=== PATIENT | female | born 1980 | race Caucasian/White ===

== ENCOUNTER 2021-02-07 08:25 | Outpatient (REF) | payer OTHER, SELFPAY ==
[2021-02-07 11:48] LABS: Appearance Urine CLEAR; Color Urine YELLOW; Glucose Urine UA NEG (NEG); Leukocyte Esterase Urine NEG (NEG); Nitrite Urine NEG (NEG); PH 5.5 (5.0-8.0); Specific Gravity - Urine 1.015 (1.005-1.025); Urine Blood NEG (NEG); Urine Ketones NEG (NEG); Urine Protein NEG (NEG-TRACE)
[2021-02-07 11:50] LABS: Hemoglobin 13.9 g/dl (12.0-16.0); Mean Corpuscular HGB Conc 33.1 g/dl (31.0-35.0); Mean Corpuscular Hemoglobin 30.6 pg (27.0-33.0); Mean Corpuscular Volume 92.5 fL (80.0-98.0); Mean Platelet Volume 10.4 fL (9.4-12.3); Platelet Count 373 X10*3/uL (160-400); Red Blood Count 4.54 X10*6/uL (4.20-5.50); Red Cell Distribution Width 12.4 % (11.0-16.0)
[2021-02-07 12:08] LABS: Bacteria Urine 1+ /LPF; Squamous Epithelial Cell Urine 1+ /LPF
[2021-02-07 12:09] LABS: RBC Urine 0 /HPF (0); WBC Urine 0 /HPF (0-4)
[2021-02-07 12:20] LABS: Alanine Aminotransferase 53 U/L (0-31); Albumin Level 4.6 g/dL (3.5-5.0); Alkaline Phosphatase 49 U/L (39-117); Anion Gap 15 (12-20); Aspartate Amino Transferase 30 U/L (5-31); Bilirubin Total 0.5 mg/dL (0.0-1.0); Blood Urea Nitrogen 17 mg/dL (9-16); Calcium 9.9 mg/dL (8.4-10.2); Carbon Dioxide 24 mmol/L (22-29); Chloride 105 mmol/L (96-108); Cholesterol 187 mg/dL; Estimated Glomerular Filt Rate > 60; Glucose Fasting 92 mg/dL (60-99); HDL Cholesterol 35 mg/dL; Iron 53 mcg/dL (30-160); LDL Cholesterol Calculated 104 mg/dl; Percent Iron Saturation 13 % (15-50); Potassium 5.1 mmol/L (3.3-5.1); Sodium 139 mmol/L (135-145); Total Iron Binding Capacity 410 mcg/dL (228-428); Total Protein 7.4 g/dL (6.5-8.0); Triglycerides 240 mg/dL; Unsaturated Iron Binding 357 ug/dL
[2021-02-07 12:41] LABS: TSH reflex Free T4 0.34 uIU/mL (0.32-4.0)
== END 2021-02-07 08:26 | disposition home or self-care (01) ==
LOC: HO.HMGCLDS 08:25
PROVIDERS: PCP Internal Medicine; Visit Provider Internal Medicine
DX: Z00.00 Encounter for general adult medical examination without abnormal findings (principal); Z13.29 Encounter for screening for other suspected endocrine disorder; Z13.220 Encounter for screening for lipoid disorders; R79.89 Other specified abnormal findings of blood chemistry
CPT/HCPCS: 36415; 80053; 80061; 81001; 83540; 84443; 85027

== ENCOUNTER 2022-10-25 11:00 | Outpatient (AMB) | payer BC, SELFPAY ==
--- NOTE | 2022-10-25 11:24 | MHC.PC.OV ---
Vital Signs 10/25/22 11:27 Height 5 ft 9 in Weight 228 lb BMI 33.7 BP 130/80 Blood Pressure Location Lt brachial Position Sitting Pulse 46 L Pulse Source Pulse Oximeter Pulse Oximetry (%) 98 Oxygen Delivery Method Room Air Intake Visit Reasons: Dermatology Referral Intake Note: Pt is here today for a sick visit. Pt c/o moll on her R side of the chest that she would like to get referral to Dermatology. Allergies nickel Allergy (Mild, Uncoded 10/25/22 11:31) skin irritation Medication List - Last Reconciled 10/25/22 by Martha Odom MD No Known Home Meds Tobacco use date assessed: 10/25/22 Dental Screening Dental Screen Date: 10/25/22 Did you have a dental visit in the last 12 months?: Yes Did you have a dental problem in the last 6 months where you did not have access to dental care?: No Was dental information given to patient?: Patient has dentist HPI Dermatology Referral HPI Details Patient presents for physical. She would like to see a tool and die assembler for some changing nevi. 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 How often do you have a drink containing alcohol?: Never 3. How often do you have six or more drinks on one occasion?: Never Total Score: 0 KG-7 AMB Questionnaire KG-7 Date KG - 7 assessed: 02/07/21 Source: Developed by Drs. Edmundo Alvarenga, Jelena Albrecht, Juan Leon and colleagues, with an educational zeb from [employer]. Review of Systems Const All systems reviewed & are unremarkable except as noted in HPI and below Reports no additional complaints Eyes Reports no additional complaints ENT Reports no additional complaints Card Reports no additional complaints Resp Reports no additional complaints GI Reports no additional complaints Reports no additional complaints Physical exam (Primary Care) Vital Signs: Last Vital Signs Pulse 46 L 10/25/22 11:27 BP 130/80 10/25/22 11:27 Pulse Ox 98 10/25/22 11:27 Oxygen Delivery Method Room Air 10/25/22 11:27 BMI result Body Mass Index 33.7 Tobacco/Smoking Status: Tobacco use Status Tobacco use date assessed 10/25/22 10/25/22 11:33 Patient Tobacco Use Status Never used Tobacco 10/25/22 11:33 Tobacco use type 10/25/22 11:33 e-Cigarette/Vaping Use Never Used 10/25/22 11:24 Thrive Assessment: Date of Thrive Assessment Date Thrive assessed 02/07/21 10/25/22 11:24 Const General: no acute distress HENMT Head: Yes normal to inspection Ears: hearing grossly normal bilaterally and TM's normal bilaterally Face and sinus: Yes normal facial exam Throat: Yes posterior oropharynx normal Eyes General: appearance normal, both eyes and all related structures Neck Neck: Yes no lymphadenopathy and Yes supple Resp Effort & Inspection: normal respiratory effort Auscultation: clear to auscultation bilaterally Cardio Rhythm: regular rhythm Heart sounds: S1 normal heart sound present and S2 normal heart sound present GI Inspection: Yes normal to inspection Palpation (GI): Soft to palpation Percussion: Yes normal to percussion Auscultation: normal bowel sounds Assessment and Plan Assessment & Plan (1) Dysplastic nevi: Comment: On upper chest and right forearm, refer to [place] Code(s): D23.9 - Other benign neoplasm of skin, unspecified (2) Annual physical exam: Code(s): Z00.00 - Encounter for general adult medical examination without abnormal findings Plan: Well-balanced at ago physical activity discussed with the patient she will return for fasting blood work (3) Normal pelvic exam: Comment: 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 Panel Fast Today Z00.00 - Encounter for general adult medical examination without abnormal findings, Z01.419 - Encounter for gynecological examination (general) (routine) without abnormal findings IRON PROFILE Today Z00.00 - Encounter for general adult medical examination without abnormal findings, Z01.419 - Encounter for gynecological examination (general) (routine) without abnormal findings Lipid Panel Today Z00.00 - Encounter for general adult medical examination without abnormal findings, Z01.419 - Encounter for gynecological examination (general) (routine) without abnormal findings TSH reflex Free T4 Today Z00.00 - Encounter for general adult medical examination without abnormal findings, Z01.419 - Encounter for gynecological examination (general) (routine) without abnormal findings Complete Blood Count Auto Diff Today Z00.00 - Encounter for general adult medical examination without abnormal findings, Z01.419 - Encounter for gynecological examination (general) (routine) without abnormal findings Referrals Dermatology Referral D23.9 - Other benign neoplasm of skin, unspecified Coding Level of Care Code Est Pt Prev Care 40-64y(31943) Diagnoses Dysplastic nevi D23.9 Annual physical exam Z00.00 Normal pelvic exam Z01.419
[2022-10-25 11:27] VITALS: BP 130/80; PULSE 46; O2SAT 98; BMI 33.7
== END 2022-10-25 12:06 | disposition home or self-care (01) ==
PROVIDERS: PCP Internal Medicine; Visit Provider Internal Medicine
DX: Z00.00 Encounter for general adult medical examination without abnormal findings (principal); D23.9 Other benign neoplasm of skin, unspecified
CPT/HCPCS: 99396

== ENCOUNTER 2022-10-31 07:45 | Outpatient (REF) | payer BC, SELFPAY ==
[2022-10-31 11:31] LABS: MANUAL DIFF FLAG NO
[2022-10-31 12:00] LABS: Basophils Absolute Auto 0.1 X10*3/uL (0.0-0.2); Basophils Percent Auto 0.7 % (0-2); Eosinophils Absolute Auto 0.2 X10*3/uL (0.0-0.4); Eosinophils Percent Auto 3.3 % (0-4); Hematocrit 41.8 % (37.0-47.0); Hemoglobin 13.9 g/dl (12.0-16.0); Imm Gran Abs Auto 0.05 X10*3/uL (0.00-0.03); Imm Gran Pct Auto 0.7 % (0.0-0.4); Lymphocytes Absolute Auto 1.8 X10*3/uL (1.2-4.9); Lymphocytes Percent Auto 25.2 % (20-40); Mean Corpuscular HGB Conc 33.3 g/dl (31.0-35.0); Mean Corpuscular Hemoglobin 30.5 pg (27.0-33.0); Mean Corpuscular Volume 91.7 fL (80.0-98.0); Mean Platelet Volume 10.5 fL (9.4-12.3); Monocytes Absolute Auto 0.7 X10*3/uL (0.1-1.2); Monocytes Percent Auto 9.3 % (2-11); Neutrophils Absolute Auto 4.4 x10*3/uL (2.0-8.3); Neutrophils Percent Auto 60.8 % (45-73); Platelet Count 389 X10*3/uL (160-400); Red Blood Count 4.56 X10*6/uL (4.20-5.50); Red Cell Distribution Width 12.2 % (11.0-16.0); White Blood Count 7.2 X10*3/uL (4.8-10.8)
[2022-10-31 12:21] LABS: Alanine Aminotransferase 41 U/L (0-31); Albumin Level 4.3 g/dL (3.5-5.0); Alkaline Phosphatase 40 U/L (39-117); Anion Gap 11 (12-20); Aspartate Amino Transferase 28 U/L (5-31); Bilirubin Total 0.4 mg/dL (0.0-1.0); Blood Urea Nitrogen 10 mg/dL (9-16); Calcium 9.6 mg/dL (8.4-10.2); Carbon Dioxide 26 mmol/L (22-29); Chloride 107 mmol/L (96-108); Cholesterol 148 mg/dL (<200); Estimated Glomerular Filt Rate > 60; Glucose Fasting 92 mg/dL (60-99); HDL Cholesterol 31 mg/dL (>40); Iron 62 mcg/dL (30-160); LDL Cholesterol Calculated 56 mg/dL (<100); Percent Iron Saturation 19 % (15-50); Potassium 4.8 mmol/L (3.3-5.1); Sodium 139 mmol/L (135-145); Total Iron Binding Capacity 328 mcg/dL (228-428); Total Protein 6.8 g/dL (6.5-8.0); Triglycerides 308 mg/dL (<150); Unsaturated Iron Binding 266 ug/dL
== END 2022-10-31 07:46 | disposition home or self-care (01) ==
LOC: HO.HMGCLDS 07:45
PROVIDERS: PCP Internal Medicine; Visit Provider Internal Medicine
DX: Z00.00 Encounter for general adult medical examination without abnormal findings (principal)
CPT/HCPCS: 36415; 80053; 80061; 83540; 84443; 85025

== ENCOUNTER 2023-09-12 00:47 | Observation (INO) | payer BC, SELFPAY ==
--- NOTE | ~2023-09-12 | MR_ITS ---
EXAMINATION: MR BRAIN WITHOUT CONTRAST CLINICAL INFORMATION: Left upper extremity numbness. COMPARISON: CT head 12/01/2018. TECHNIQUE: MRI of the brain was obtained using routine sequences without contrast. FINDINGS: There is no intracranial mass effect or midline shift. No abnormal extra-axial collection. Lateral and third ventricles are normal. No hydrocephalus. Midline structures including the cervicomedullary junction are normal. No acute bone marrow signal changes. There is no acute territorial infarct. No pathological magnetic susceptibility artifact. Intracranial vascular flow voids are grossly maintained. No mastoid or middle ear effusion. Trivial mucosal thickening within ethmoid air cells and frontal sinuses. Globes and orbits are symmetric. MR/MR head/brain wo con IMPRESSION: Normal brain MRI.
--- NOTE | ~2023-09-12 | CT_ITS ---
EXAMINATION: CT HEAD WITHOUT CONTRAST (STROKE PROTOCOL) CLINICAL INFORMATION: Stroke protocol. Left face and left arm numbness. COMPARISON: 12/01/2018. TECHNIQUE: Contiguous axial imaging was performed from the skull base to vertex without intravenous administration of contrast. This CT examination was performed using dose optimization techniques as appropriate, variously including the following: *Automated exposure control *Adjustment of mA and/or kV according to patient size (this includes techniques or standardized protocols for targeted exams where dose is matched to indication/reason for exam; i.e. extremities or head) *Use of iterative reconstruction technique DLP: 632 mGy-cm FINDINGS: The lateral, third and fourth ventricles are normally outlined. The cortical sulci and basal cisterns are normally outlined as well. There is no acute territorial defect, hemorrhage or midline shift. The extra-axial spaces are unremarkable. Calvarium/scalp: Intact. Maxillofacial sinuses and mastoids: Clear as visualized. CT/CT head for stroke IMPRESSION: No acute intracranial pathology. This critical result was discussed with Dr. Vj Feliciano at 1:25 AM hours on 09/12/2023 . It was ascertained that the content and urgency of the report was understood at the time of direct communication.
--- NOTE | ~2023-09-12 | US_ITS ---
EXAMINATION: US EXTRACRANIAL CAROTID DUPLEX, BILATERAL CLINICAL INFORMATION: Left arm numbness COMPARISON: None available. TECHNIQUE: Real-time ultrasound and Doppler techniques (integrating B-mode 2-D vascular images, Doppler spectral analysis and color-flow Doppler imaging) were utilized to interrogate the extracranial carotid arteries, the vertebral arteries and proximal subclavian arteries bilaterally. The degree of stenosis is determined by criteria similar to NASCET. FINDINGS: Right Side: 1. There is no significant atherosclerotic plaque seen in the bifurcation/proximal ICA region. 2. The common carotid artery PSV proximally is 127 cm/s and distally 128 cm/s. 3. The proximal internal carotid artery velocities are 142 cm/s systolic and 39.2 cm/s diastolic. 4. The proximal external carotid artery PSV is 156 cm/s. 5. The vertebral artery shows antegrade flow. 6. The subclavian artery waveforms are normal. Left Side: 1. There is no significant atherosclerotic plaque seen in the bifurcation/proximal ICA region. 2. The common carotid artery PSV proximally is 114 cm/s and distally 116 cm/s. 3. The proximal internal carotid artery velocities are 122 cm/s systolic and 43.1 cm/s diastolic. 4. The proximal external carotid artery PSV is 153 cm/s. 5. The vertebral artery shows antegrade flow. 6. The subclavian artery waveforms are normal. US/US carotid duplex BI IMPRESSION: 1. RIGHT: Normal right internal carotid artery without atherosclerotic plaque or hemodynamically significant stenosis. 2. LEFT: Normal left internal carotid artery without atherosclerotic plaque or hemodynamically significant stenosis.
[2023-09-12 00:58] VITALS: BP 174/101; PULSE 70; RESP 18; TEMP 36.4; O2SAT 96; BMI 33.2
--- NOTE | 2023-09-12 01:08 | PC.NURSE ---
pt to CT
--- NOTE | 2023-09-12 01:12 | ED_ITS ---
HPI - Neuro Symptoms/Deficit General Chief Complaint: Stroke Stated Complaint: left arm numbness Time Seen by Provider: 09/12/23 01:12 Source: patient Mode of arrival: ambulatory Limitations: no limitations History of Present Illness ED Provider: Dr. Sidney Feliciano HPI Narrative: 43-year-old female with no significant past medical history who presents emergency department for evaluation of numbness to the left side of her face, left arm and left leg which started approximately 30-45 minutes prior to coming to emergency department (estimated last well-known time 23:30 hours). The patient states that the symptoms came on suddenly while she was watching television. She states that she was sitting in a reclining position on her bed watching television. She states that her right arm felt numb. This numbness persisted. When she got to the emergency department she was brought right back in for evaluation of possible stroke. The patient denied headache, nausea, vomiting, neck pain, palpitations. Patient denied being ill in any way prior to the onset of her symptoms Related Data Home Medications ?Medication ?Instructions ?Recorded ?Confirmed No Known Home Meds 02/07/21 10/25/22 Allergies Allergy/AdvReac Type Severity Reaction Status Date / Time nickel Allergy Mild skin Uncoded 09/12/23 01:06 irritation Review of Systems 2 Review of Systems: Yes all other systems are reviewed and are negative [facility] Past Medical History [facility] Narrative: Social history: Patient denies tobacco, alcohol and drug use. 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 Housing: House Patient Tobacco Use Status: Never used Tobacco Smoked in Last 30 Days: No e-Cigarette/Vaping Use: Never Used Advance Directives: No Advance Directives Information Provided: Yes Do you have a plan to hurt others: No Plan service: No Current occupational status: employed 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 Exam: General: Awake, alert in no distress Head: Normocephalic, atraumatic EENT: PERRL, Lids normal, sclera normal, conjunctiva normal, nose normal , ears normal, throat without erythema or exudates Neck: Supple, no adenopathy Lung: breath sounds symmetric, no wheezing, rales or rhonchi Chest: symmetric movement, nontender Heart: regular rate and rhythm, normal S1, S2 no murmurs or rubs Abdomen: soft, non-tender, nondistended, normal bowel sounds Back: no vertebral tenderness, no CVAT Extremities: no deformities, moves all extremities symmetrically Neuro: Awake, alert, oriented, normal speech, cranial nerves intact, moves all extremities symmetrically, patient has slight diminished light touch to her left side of her face, left arm and left leg compared to the right Psych: Pleasant, cooperative Medical Decision Making Medical Decision Making MDM Narrative: 43-year-old female with no significant past medical history who presents emergency department for evaluation of numbness to the left side of her face, left arm and left leg which started approximately 30-45 minutes prior to coming to emergency department (estimated last well-known time 23:30 hours). Symptoms came on suddenly, patient was reclined in bed watching television. She describes the symptoms as a numbness of her left arm. The patient denied headache, nausea, vomiting, neck pain, palpitations. Vital signs revealed an elevated blood pressure otherwise unremarkable. Physical examination revealed no significant weakness of her left side compared to the right but she did have diminished light touch to her left face, left arm and left leg. Differential diagnosis: ?Includes but is not limited to stroke, TIA, complex migraine, electrolyte abnormalities, anemia Following evaluation was ordered: CBC, BMP, LFTs, magnesium, CK, TSH, PT/INR, PTT, troponin, urinalysis, CT head for stroke protocol Course: 02:33 My interpretation patient's laboratory evaluation is as follows: CBC is normal, CMP was normal. Chloride elevated 109, CO2 low 21. AST, ALT elevated 35 and 63, CK elevated to 65, TSH was normal. CT scan of the patient's head revealed no acute findings. Twelve EKG revealed a normal sinus rhythm with a rate of 64. On re-evaluation, the patient continues to have left-sided arm numbness. Given her low NIH stroke scale of 1, the patient is not a thrombolytics candidate and I do not think that she needs CT angiogram of her head and neck at this time. Given the fact that her numbness of her left upper extremity is persisting, the patient will be admitted for evaluation of possible stroke. Patient was given aspirin 162 mg orally. I did discuss admission over tiger text with the covering hospitalist, Dr. Chavez Lozoya the patient will be admitted for further management and diagnostic workup. Admission/Observation Consideration of admission/observation: Escalation of care including admission/observation considered Consult Healthcare Provider Management of the patient was discussed with: Hospitalist and Pulper (Radiologist) Lab Data MDM Lab Attestation statement: I reviewed the patient's lab results. 09/12/23 01:10 09/12/23 01:10 Labs: Lab Results 09/12/23 09/12/23 Range/Units 01:10 Unknown WBC 7.8 (4.8-10.8) X10*3/uL RBC 4.28 (4.20-5.50) X10*6/uL Hgb 13.3 (12.0-16.0) g/dl Hct 38.0 (37.0-47.0) % MCV 88.8 (80.0-98.0) fL MCH 31.1 (27.0-33.0) pg MCHC 35.0 (31.0-35.0) g/dl RDW 12.6 (11.0-16.0) % Plt Count 365 (160-400) X10*3/uL MPV 9.9 (9.4-12.3) fL Immature Gran % (Auto) 0.4 (0.0-0.4) % Neut % (Auto) 49.1 (45-73) % Lymph % (Auto) 35.7 (20-40) % [place] % (Auto) 10.1 (2-11) % Eos % (Auto) 4.1 H (0-4) % Baso % (Auto) 0.6 (0-2) % Lymph # (Auto) 2.8 (1.2-4.9) X10*3/uL [place] # (Auto) 0.8 (0.1-1.2) X10*3/uL Eos # (Auto) 0.3 (0.0-0.4) X10*3/uL Baso # (Auto) 0.1 (0.0-0.2) X10*3/uL Abs Immat Gran (auto) 0.03 (0.00-0.03) X10*3/uL Absolute Neuts (auto) 3.8 (2.0-8.3) x10*3/uL Absolute Nucleated RBC 0.000 (0.0-0.012) X10*3/uL Nucleated RBC % (auto) 0.0 (0.0-0.2) /100WBC PT 11.6 (11.1-13.3) SEC INR 1.0 (0.9-1.1) APTT 30.3 (26.0-36.8) SEC Sodium 140 (135-145) mmol/L Potassium 3.8 (3.3-5.1) mmol/L Chloride 109 H (96-108) mmol/L Carbon Dioxide 21 L (22-29) mmol/L Anion Gap 14 (12-20) BUN 13 (9-16) mg/dL Creatinine 0.91 (0.5-1.4) mg/dL Estim Creat Clear Calc 100.3 Estimated GFR > 60 Random Glucose 102 (60-115) mg/dL Calcium 9.5 (8.4-10.2) mg/dL Magnesium 2.3 (1.6-2.6) mg/dL Total Bilirubin 0.5 (0.0-1.0) mg/dL Direct Bilirubin 0.2 (0.0-0.5) mg/dL AST 35 H (5-31) U/L ALT 63 H (0-31) U/L Alkaline Phosphatase 42 (39-117) U/L Total Creatine Kinase 265 H (26-140) U/L Troponin I High Sens 4.6 (<3.5-17.0) ng/L Total Protein 7.0 (6.5-8.0) g/dL Albumin 4.5 (3.5-5.0) g/dL TSH 0.64 (0.32-4.0) uIU/mL Urine Color Yellow Urine Appearance Clear Urine pH 6.5 (5.0-9.0) Ur Specific [place] 1.010 (1.005-1.025) Urine Protein Negative (Neg-Trace) mg/dL Urine Glucose (UA) Negative (Negative) mg/dL Urine Ketones Negative (Negative) mg/dL Urine Blood Negative (Negative) Urine Nitrite Negative (Negative) Ur Leukocyte Esterase Negative (Negative) Independent Interpretation I performed an independent interpretation of an: EKG Interpretation: My interpretation patient's 12 EKG done at 02:21 hours is as follows: Normal sinus rhythm rate of 64, normal OH interval, prolonged QRS duration of 102 milliseconds, QTC interval, no ST segment elevation, no ST segment depression, inverted T-waves in lead 3 and V1, no PACs, no PVCs, R/R prime V1 consistent with incomplete right bundle-branch block. Radiology Impression Discussion of test interpretation with radiology: I discussed test interpretation with the radiologist and I have reviewed the radiologist's reading. Radiologist Impression: CT head for stroke IMPRESSION: No acute intracranial pathology. This critical result was discussed with Dr. Vj Feliciano at 1:25 AM hours on 09/12/2023 . It was ascertained that the content and urgency of the report was understood at the time of direct communication. Dictated By: Edmundo Anthony NIH Stroke Scale Internal: Initial- Upon Arrival Level of Consciousness: Alert Level of Consciousness Questions: Answers both questions correctly Level of Consciousness Commands: Performs both tasks correctly Best Gaze: Normal Visual: No visual loss Facial Palsy: Normal Motor Arm (Right): No drift Motor Arm (Left): No drift Motor Leg (Right): No drift Motor Leg (Left): No drift Limb Ataxia: Absent Sensory: Mild to moderate sensory loss Best Language: No aphasia Dysarthia: Normal Extinction and Inattention: No abnormality Score: 1 Critical Care Time Critical Care Time Critical Care Time: Yes Total Critical Care Time: 35 Attestation: Critical Care: The patient was critically ill with a high probability of imminent or life threatening deterioration. I spent greater than 30 minutes of discontinuous time evaluating the patient,delivering critical care at the bedside, discussing and evaluating pertinent data with consultants. Critical care time does not include time spent performing separately billable procedures or teaching. Total time spent performing critical care was 35 minutes. Discharge Plan Discharge Clinical Impression: Left arm numbness Patient Disposition: Admitted As Inpatient Print Language: Frisian
--- NOTE | 2023-09-12 01:12 | ECG_ITS ---
Test Reason : STROKE PROTOCOL Blood Pressure : / mmHG Vent. Rate : 064 BPM Atrial Rate : 064 BPM P-R Int : 138 ms QRS Dur : 102 ms QT Int : 402 ms P-R-T Axes : 023 -03 008 degrees QTc Int : 414 ms Normal sinus rhythm Incomplete right bundle branch block Borderline ECG When compared with ECG of 01-DEC-2018 16:55, No significant change was found Referred By: Sidney Feliciano Electronically Signed By:Bebeto Mukherjee
[2023-09-12 01:21] LABS: MANUAL DIFF FLAG NO
[2023-09-12 01:23] LABS: Basophils Absolute Auto 0.1 X10*3/uL (0.0-0.2); Basophils Percent Auto 0.6 % (0-2); Eosinophils Absolute Auto 0.3 X10*3/uL (0.0-0.4); Eosinophils Percent Auto 4.1 % (0-4); Hemoglobin 13.3 g/dl (12.0-16.0); Imm Gran Abs Auto 0.03 X10*3/uL (0.00-0.03); Imm Gran Pct Auto 0.4 % (0.0-0.4); Lymphocytes Absolute Auto 2.8 X10*3/uL (1.2-4.9); Lymphocytes Percent Auto 35.7 % (20-40); Mean Corpuscular Hemoglobin 31.1 pg (27.0-33.0); Mean Corpuscular Volume 88.8 fL (80.0-98.0); Mean Platelet Volume 9.9 fL (9.4-12.3); Monocytes Absolute Auto 0.8 X10*3/uL (0.1-1.2); Monocytes Percent Auto 10.1 % (2-11); Neutrophils Absolute Auto 3.8 x10*3/uL (2.0-8.3); Neutrophils Percent Auto 49.1 % (45-73); Platelet Count 365 X10*3/uL (160-400); Red Blood Count 4.28 X10*6/uL (4.20-5.50); Red Cell Distribution Width 12.6 % (11.0-16.0); White Blood Count 7.8 X10*3/uL (4.8-10.8)
[2023-09-12 01:24] VITALS: BP 147/82; PULSE 62; RESP 18; TEMP 36.8; O2SAT 97
[2023-09-12 01:30] LABS: Prothrombin Time 11.6 SEC (11.1-13.3)
[2023-09-12 01:32] LABS: Partial Thromboplastin Time 30.3 SEC (26.0-36.8)
[2023-09-12 01:36] LABS: Stroke Lab Use COMPLETE
[2023-09-12 01:42] LABS: Troponin-I High Sensitivity 4.6 ng/L (<3.5-17.0)
[2023-09-12 01:45] LABS: Alanine Aminotransferase 63 U/L (0-31); Albumin Level 4.5 g/dL (3.5-5.0); Alkaline Phosphatase 42 U/L (39-117); Anion Gap 14 (12-20); Aspartate Amino Transferase 35 U/L (5-31); Bilirubin Direct 0.2 mg/dL (0.0-0.5); Bilirubin Total 0.5 mg/dL (0.0-1.0); Blood Urea Nitrogen 13 mg/dL (9-16); Calcium 9.5 mg/dL (8.4-10.2); Carbon Dioxide 21 mmol/L (22-29); Chloride 109 mmol/L (96-108); Creatinine Clr Calc Pharmacy 100.3; Estimated Glomerular Filt Rate > 60; Glucose Random 102 mg/dL (60-115); Magnesium 2.3 mg/dL (1.6-2.6); Potassium 3.8 mmol/L (3.3-5.1); Sodium 140 mmol/L (135-145)
[2023-09-12 01:52] VITALS: BMI 34.9
[2023-09-12 01:59] LABS: Appearance Urine Clear; Color Urine Yellow; Glucose Urine UA Negative (Negative); Leukocyte Esterase Urine Negative (Negative); Nitrite Urine Negative (Negative); PH 6.5 (5.0-9.0); Urine Blood Negative (Negative); Urine Ketones Negative (Negative); Urine Protein Negative (Neg-Trace)
[2023-09-12 01:59] LABS: Thyroid Stimulating Hormone 0.64 uIU/mL (0.32-4.0)
[2023-09-12] MEDS: Aspirin 81 MG TAB.CHEW 162 MG PO (02:43)
--- NOTE | 2023-09-12 03:42 | P.HPHOSP_ITS ---
History of Present Illness Date of Service: 09/12/23 Attending physician on admission: Ricardo Lozoya Chief Complaint: Left arm numbness Inessa Maldonado is a very pleasant 43 years old woman with no significant past medical history presents to the emergency department complaining of left arm numbness that started 30-45 minutes before arriving to the emergency department. She did not report any numbness or weakness to her face or left leg. She did not report any headache, acute visual disturbances, nausea, vomiting, dizziness, palpitations, chest pain or shortness on breath. She did not report any acute gastrointestinal genitourinary symptoms. She denied tobacco smoking, alcohol abuse or illicit drug use. She has no history of diabetes mellitus, hypertension, hyperlipidemia, heart disease or strokes. She also denied any history of stroke or blood dyscrasias in her family. Patient stated that she recently started to eat a healthy diet and exercise. In the ED, she was found to have an initial blood pressure 174/101. Last BP is 147/82. Blood workup including CBC, CMP and troponin are unremarkable except for slight elevation of transaminases and total CK. Head CT scan showed no acute intracranial abnormalities. ECG showed normal sinus rhythm and incomplete right bundle branch block. ED tx: Aspirin 162 mg p.o. Review of Systems 2 Review of Systems: All 12 systems were reviewed and normal except as noted in HPI. 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 Current occupational exposures/hazards: No Cognitive needs: No Hearing needs: No Vision needs: No Meds Allergies Allergy/AdvReac Type Severity Reaction Status Date / Time nickel Allergy Mild skin Uncoded 09/12/23 01:06 irritation Active Medications: Current Medications Acetaminophen (Acetaminophen 325 Mg Tablet) 975 mg PO Q6H PRN PRN Reason: Pain, Mild (Pain Scale 1-3), fever or headache Aspirin (Aspirin Enteric Coated 81 Mg Tablet.Dr) 81 mg PO DAILY JAIMIE Calcium Carbonate (Calcium Carbonate 750 Mg Tab.Chew) 750 mg PO Q4H PRN PRN Reason: Heartburn Magnesium Hydroxide (Milk Of Magnesia 30 Ml Oral.Susp) 30 ml PO DAILY PRN PRN Reason: Constipation Melatonin (Melatonin 3 Mg Tablet) 6 mg PO BEDTIME PRN PRN Reason: Insomnia Sodium Chloride (0.9 % Sodium Chloride Flush 3 Ml Syringe) 3 ml IVFLUSH QSHIFT JAIMIE Home Medications ?Medication ?Instructions ?Recorded ?Confirmed ?Last Taken ?Type No Known Home Meds 02/07/21 09/12/23 Unknown History Physical Exam 2 Vital Signs and Narrative: Vital Signs: Last Vital Signs Temp 98.3 F 09/12/23 01:24 Pulse 62 09/12/23 01:24 Resp 18 09/12/23 01:24 BP 147/82 H 09/12/23 01:24 Pulse Ox 97 09/12/23 01:24 O2 Del Method Room Air 09/12/23 01:24 BMI result Body Mass Index 34.9 Constitutional - Awake and Alert, No apparent distress. Pleasant. Cooperative. HEENT - PERRL, EOMI Heart - S1S2, RRR. No murmurs. Lungs - Normal lung expansion, Normal respiratory effort, No respiratory distress, CTA bilaterally Abdomen - NT / ND; +BS; No rebound or guarding Extremities - no calf tenderness bilaterally, no swelling Musculoskeletal - Normal inspection, normal ROM Skin - Warm/Dry Neurological - Alert & oriented x3, CN III-XII in tact, 5/5 strength BUE and BLE. Normal speech. Psychological - Appropriate affect Results Labs 09/12/23 04:25 09/12/23 04:26 Labs: Laboratory Results - last 24 hr 09/12/23 09/12/23 01:10 Unknown MCV 88.8 MCH 31.1 MCHC 35.0 RDW 12.6 Plt Count 365 MPV 9.9 Immature Gran % (Auto) 0.4 Neut % (Auto) 49.1 Lymph % (Auto) 35.7 [place] % (Auto) 10.1 Eos % (Auto) 4.1 H Baso % (Auto) 0.6 Lymph # (Auto) 2.8 [place] # (Auto) 0.8 Eos # (Auto) 0.3 Baso # (Auto) 0.1 Abs Immat Gran (auto) 0.03 Absolute Neuts (auto) 3.8 Absolute Nucleated RBC 0.000 Nucleated RBC % (auto) 0.0 PT 11.6 INR 1.0 APTT 30.3 Anion Gap 14 Estim Creat Clear Calc 100.3 Estimated GFR > 60 Random Glucose 102 Calcium 9.5 Magnesium 2.3 Total Bilirubin 0.5 Direct Bilirubin 0.2 AST 35 H ALT 63 H Alkaline Phosphatase 42 Total Creatine Kinase 265 H Troponin I High Sens 4.6 Total Protein 7.0 Albumin 4.5 TSH 0.64 Urine Color Yellow Urine Appearance Clear Urine pH 6.5 Ur Specific [place] 1.010 Urine Protein Negative Urine Glucose (UA) Negative Urine Ketones Negative Urine Blood Negative Urine Nitrite Negative Ur Leukocyte Esterase Negative Imaging Radiologist's Impressions: Impressions Head CT 09/12/23 01:18 IMPRESSION: No acute intracranial pathology. This critical result was discussed with Dr. Vj Feliciano at 1:25 AM hours on 09/12/2023 . It was ascertained that the content and urgency of the report was understood at the time of direct communication. Assessment and Plan (1) Left arm numbness: Status: Acute (2) Elevated liver transaminase level: Status: Acute (3) Elevated CPK: Status: Acute Plan Inessa Maldonado is a 43 years old woman presents with: * Left upper extremity numbness. TIA versus stroke. Observation. Telemetry. Neuro checks every 4 hours. Continue aspirin 81 mg p.o. daily. Check lipid panel, troponin and A1c. Check TTE, brain MRI and bilateral carotid US. Neurology consult. * Mildly elevated transaminases and total CK (not rhabdomyolysis levels). Likely due to exercising. Recheck in the morning. Quality Stroke Does the patient have a stroke diagnosis?: No VTE Prior VTE?: No VTE Risk Level:: Medical - low VTE Device Contraindication: Treatment Not Indicated VTE Drug Contraindication: Treatment Not Indicated
[2023-09-12 04:43] LABS: MANUAL DIFF FLAG NO
[2023-09-12 04:44] LABS: Basophils Absolute Auto 0.1 X10*3/uL (0.0-0.2); Basophils Percent Auto 0.6 % (0-2); Eosinophils Absolute Auto 0.2 X10*3/uL (0.0-0.4); Eosinophils Percent Auto 2.8 % (0-4); Hematocrit 35.6 % (37.0-47.0); Hemoglobin 12.6 g/dl (12.0-16.0); Imm Gran Abs Auto 0.04 X10*3/uL (0.00-0.03); Imm Gran Pct Auto 0.5 % (0.0-0.4); Lymphocytes Absolute Auto 2.1 X10*3/uL (1.2-4.9); Lymphocytes Percent Auto 27.2 % (20-40); Mean Corpuscular HGB Conc 35.4 g/dl (31.0-35.0); Mean Corpuscular Hemoglobin 31.8 pg (27.0-33.0); Mean Corpuscular Volume 89.9 fL (80.0-98.0); Mean Platelet Volume 10.1 fL (9.4-12.3); Monocytes Absolute Auto 0.7 X10*3/uL (0.1-1.2); Neutrophils Absolute Auto 4.6 x10*3/uL (2.0-8.3); Neutrophils Percent Auto 59.9 % (45-73); Platelet Count 313 X10*3/uL (160-400); Red Blood Count 3.96 X10*6/uL (4.20-5.50); Red Cell Distribution Width 12.4 % (11.0-16.0); White Blood Count 7.8 X10*3/uL (4.8-10.8)
[2023-09-12 05:07] LABS: Alanine Aminotransferase 60 U/L (0-31); Albumin Level 4.2 g/dL (3.5-5.0); Alkaline Phosphatase 38 U/L (39-117); Anion Gap 12 (12-20); Aspartate Amino Transferase 33 U/L (5-31); Bilirubin Total 0.4 mg/dL (0.0-1.0); Blood Urea Nitrogen 11 mg/dL (9-16); Calcium 9.3 mg/dL (8.4-10.2); Carbon Dioxide 23 mmol/L (22-29); Chloride 111 mmol/L (96-108); Creatinine Clr Calc Pharmacy 102.9; Estimated Glomerular Filt Rate > 60; Glucose Random 103 mg/dL (60-115); Potassium 4.7 mmol/L (3.3-5.1); Sodium 141 mmol/L (135-145); Total Protein 6.7 g/dL (6.5-8.0)
--- NOTE | 2023-09-12 05:28 | PC.NURSE ---
Completed home medication worklist
[2023-09-12 05:48] VITALS: BP 124/79; PULSE 100; RESP 17; TEMP 36.8; O2SAT 98
--- NOTE | 2023-09-12 07:00 | CA_ITS ---
Transthoracic Echocardiogram Patient (Last, First, Middle): Inessa Maldonado, Gender: Female Date of : 1980 Age: 43 Procedure Date: 09/12/2023 Procedure Type: Transthoracic Echocardiogram [place] [facility] [place] Height: 175.26 cm Weight: 107.05 kg BSA: 2.22 m2 Heart Rate: bpm BP: 124 / 79 mmHg Veneer Lathe Operator: Referring MD: Ricardo Lozoya MD Symptoms: STroke symptoms Study Quality: Adequate w Contrast ECG Rhythm: Sinus Conclusions: - Normal left ventricular size and systolic function. There is mildly increased left ventricular wall thickness. The visually estimated ejection fraction is between 55-60%. Diastolic function is normal for age. - Normal right ventricular cavity size and systolic function. Findings Left Ventricle Normal left ventricular size and systolic function. There is mildly increased left ventricular wall thickness. The visually estimated ejection fraction is between 55-60%. Diastolic function is normal for age. Right Ventricle Normal right ventricular cavity size and systolic function. Atria The left atrium is normal in size. Aortic Valve Normal aortic valve structure and function. There is no aortic valve stenosis. There is no aortic valve regurgitation. Mitral Valve Normal mitral valve structure and function. There is trace mitral valve regurgitation. There is no mitral valve stenosis. Pulmonic Valve The pulmonic valve is likely normal. Tricuspid Valve Normal tricuspid valve structure. There is no tricuspid valve regurgitation. Normal right atrial pressure. There is no evidence of pulmonary hypertension. Great Vessels All visible segments of the aorta are normal in size. Venous The inferior vena cava is normal in size and collapses greater than 50% with inspiration. Pericardium/Pleural There is no evidence of pericardial effusion. Measurements 2D Linear Measurements IVSd: 1.26 0.6-0.9/0.6-1.0 cm LVIDd: 4.41 3.9-5.3/4.2-5.9 cm LVIDd Index: 1.99 2.4-3.2/2.2-3.1 cm/m2 LVIDs: 2.86 2.0-3.6 cm LVPWd: 1.21 0.7-1.1 cm Ao Root: 2.80 2.1-3.5 cm LA Diam: 4.20 2.7-3.8/3.0-4.0 cm LAIDs Index: 1.89 1.5-2.3 cm/m2 LV Mass: 249.49 67-162/88-224 g LV Mass Index: 112.38 43-95/49-115 g/m2 LVOT Diam: 2.20 3.0+(-)1.3 cm Mitral Valve MV Pk E: 0.73 MV PK A: 0.64 MV Decel Time: 209.00 E/A: 1.10 E'Lateral: 12.50 E'Medial: 10.90 E/E' Med: 6.70 E/E' Lat: 5.80 PHT: 61.00 MVA PHT: 3.61 Decel [place]: 3.48 Aortic Valve AoV Pk Wallace: 1.26 AoV Mn Wallace: 0.82 AoV VTI: 0.28 AoV Pk Grad: 6.00 Aov Mn Grad: 3.00 DOROTHY Cont.VTI: 3.54 LVOT LVOT Pk Wallace: 1.17 LVOT Mn Wallace: 0.71 LVOT VTI: 0.26 LVOT Pk Grad: 5.00 LVOT Mn Grad: 2.00 LVOT Diam: 2.20 LVOT Area: 3.80 Diastolic Function MV Pk E: 0.73 MV Pk A: 0.64 E/A: 1.10 E'Medial: 10.90 E/E' Med: 6.70 E' Laterial: 12.50 E/E' Lat: 5.80 Right Ventricle TAPSE (mm): 24.00 TVS' Wallace: 9.00 Tricuspid Valve TR Pk Wallace: 2.48 TR Pk Grad: 25.00 RA Press: 3.00 RVSP: 28.00 Great Vessels Aorta Ao Root-2D: 2.80 2.0-3.7 cm Ao Asc: 2.80 2.1-3.4 cm Pulmonary Valve PV Pk Wallace: 0.77 Peak PV Grad: 2.00 Updated in Other Vendor System with Status of Final Bebeto Mukherjee MD electronically signed on 09/12/2023 12:38:17 PM with status of Final
[2023-09-12 07:22] LABS: Estimated Average Glucose 105 mg/dL; Hemoglobin A1c % 5.3 % (<6.0)
[2023-09-12] MEDS: 0.9 % Sodium Chloride Flush 3 ML SYRINGE IVFLUSH (07:52)
[2023-09-12 07:59] LABS: Appearance Urine Clear; Color Urine Yellow; Glucose Urine UA Negative (Negative); Leukocyte Esterase Urine Negative (Negative); Nitrite Urine Negative (Negative); PH 6.5 (5.0-9.0); Urine Blood Negative (Negative); Urine Ketones Negative (Negative); Urine Protein Negative (Neg-Trace)
[2023-09-12] MEDS: Aspirin Enteric Coated 81 MG TABLET.DR PO (08:00)
--- NOTE | 2023-09-12 08:00 | PC.NURSE ---
Pt alert and oriented, breathing even and unlabored. Pt denies any new symptoms, reports minor sensation changes in left hand but has improved from where it was. Neg for unilateral weakness, arm drift, slurred speech or facial droop. Denies CP or SOB. Sinus bel on bedside court recording monitor. No issues swallowing. VSS
[2023-09-12 08:25] VITALS: BP 142/72; PULSE 56; RESP 16; O2SAT 98
--- NOTE | 2023-09-12 08:35 | MHC.CM.PN ---
CM met with Patient at bedside, in the ED and addressed METZGER with her, providing Patient with the original and a copy will be placed on the chart.Patient lives in a house with her /HCP and her 2 children ages 14 and 17 years of age. Home/self care is the goal and CM has initiated and will follow for dc planning. PCP is Dr. Martha Odom.
--- NOTE | 2023-09-12 08:39 | PC.NURSE ---
Pt taken to MRI
--- NOTE | 2023-09-12 08:44 | PHA.MEDREC ---
Pharmacy Consult ? Medication Reconciliation Pharmacy has completed the medication reconciliation. Spoke to patient and confirmed that she does not take any medication at home.
--- NOTE | 2023-09-12 09:44 | PM.NEUROCN ---
History of Present Illness Data of Consult Service Date: 09/12/23 Primary Care Provider: Martha Odom MD HPI Reason for consult: Numbness 43 years old woman with previous history of headaches came to hospital with left-sided numbness. She woke up and noted that her left hand and forearm area was numb and tingly. Soon it extended to involve her whole left arm up to shoulder. It did not get better and 45 minutes and she got nervous and came to hospital. It lasted many hours and then dissipated. There was no associated headache. Otherwise she was having headaches but not that frequently. There was no history of any recent cold or flu-like illness head injury or neck trauma. Review of Systems Review of Systems: No cold or flu-like illness or head injury or neck trauma. 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 Housing: House Patient Tobacco Use Status: Never used Tobacco Smoked in Last 30 Days: No e-Cigarette/Vaping Use: Never Used Advance Directives: No Advance Directives Information Provided: Yes Do you have a plan to hurt others: No Plan service: No Current occupational status: employed 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 Current occupational exposures/hazards: No Cognitive needs: No Hearing needs: No Vision needs: No Meds Allergies Allergy/AdvReac Type Severity Reaction Status Date / Time nickel Allergy Mild skin Uncoded 09/12/23 01:06 irritation Active Medications: Current Medications Acetaminophen (Acetaminophen 325 Mg Tablet) 975 mg PO Q6H PRN PRN Reason: Pain, Mild (Pain Scale 1-3), fever or headache Aspirin (Aspirin Enteric Coated 81 Mg Tablet.) 81 mg PO DAILY JAIMIE Last Admin: 09/12/23 08:00 Dose: 81 mg Calcium Carbonate (Calcium Carbonate 750 Mg Tab.Chew) 750 mg PO Q4H PRN PRN Reason: Heartburn Magnesium Hydroxide (Milk Of Magnesia 30 Ml Oral.Susp) 30 ml PO DAILY PRN PRN Reason: Constipation Melatonin (Melatonin 3 Mg Tablet) 6 mg PO BEDTIME PRN PRN Reason: Insomnia Sodium Chloride (0.9 % Sodium Chloride Flush 3 Ml Syringe) 3 ml IVFLUSH QSHIFT [facility] Last Admin: 09/12/23 07:52 Dose: 3 ml Home Medications ?Medication ?Instructions ?Recorded ?Confirmed ?Last Taken ?Type No Known Home Meds 02/07/21 09/12/23 Unknown History Physical Exam Vital Signs: Vital Signs: Last Vital Signs Temp 98.2 F 09/12/23 05:48 Pulse 56 09/12/23 08:25 Resp 16 09/12/23 08:25 BP 142/72 H 09/12/23 08:25 Pulse Ox 98 09/12/23 08:25 O2 Del Method Room Air 09/12/23 08:25 BMI result Body Mass Index 34.9 Neuro: Other: She is alert and awake with normal spontaneity of speech fluency comprehension and affect. Face is symmetrical. Visual smith are full. There is no pronator drift. Ruduzy-mv-[id number] testing is normal. Deep tendon reflexes are 1+ with flexor plantars. Speech is normal. Results Labs 09/12/23 04:25 09/12/23 04:26 Labs: Short CBC 09/12/23 09/12/23 Range/Units 01:10 04:25 WBC 7.8 7.8 (4.8-10.8) X10*3/uL Hgb 13.3 12.6 (12.0-16.0) g/dl Hct 38.0 35.6 L (37.0-47.0) % Plt Count 365 313 (160-400) X10*3/uL BMP 09/12/23 09/12/23 01:10 04:26 Sodium 140 141 Potassium 3.8 4.7 D Chloride 109 H 111 H Carbon Dioxide 21 L 23 BUN 13 11 Creatinine 0.91 0.91 Calcium 9.5 9.3 Cardiac Enzymes 09/12/23 09/12/23 Range/Units 01:10 04:26 Total Creatine Kinase 265 H 221 H (26-140) U/L Liver Function 09/12/23 09/12/23 Range/Units 01:10 04:26 Total Bilirubin 0.5 0.4 (0.0-1.0) mg/dL Direct Bilirubin 0.2 (0.0-0.5) mg/dL AST 35 H 33 H (5-31) U/L ALT 63 H 60 H (0-31) U/L Alkaline Phosphatase 42 38 L (39-117) U/L Albumin 4.5 4.2 (3.5-5.0) g/dL Urine 09/12/23 09/12/23 Range/Units 07:51 Unknown Urine Color Yellow Yellow Urine Appearance Clear Clear Urine pH 6.5 6.5 (5.0-9.0) Ur Specific [place] 1.010 1.010 (1.005-1.025) Urine Protein Negative Negative (Neg-Trace) mg/dL Urine Glucose (UA) Negative Negative (Negative) mg/dL Noncontrast head CT and MRI of brain were reviewed. No significant abnormality was noted. Assessment and Plan (1) Migraine equivalent syndrome: Status: Acute 43 years old woman who probably had left hand and arm numbness from a migraine episode. Differential diagnosis included affix brain lesion but no such lesion was noted. Neuropathy would not explain this either. As far as CPK elevation is concerned, I recommend repeating it in a week or 2. She should avoid drinking alcohol when aggressive physical activity during that time. Procedures Date of Service Date of Service: 09/12/23
[2023-09-12 10:58] VITALS: BMI 35.0
[2023-09-12 11:25] VITALS: BP 146/70; PULSE 56; RESP 18; TEMP 36.5; O2SAT 97
--- NOTE | 2023-09-12 12:39 | P.DS_ITS ---
DS: Providers Provider Date of Service: 09/12/23 Date of admission: 09/12/23 03:36 Primary care physician: Martha Odom MD Consults: 09/12/23 03:39 Consult to Neurology Routine Consulting Provider: Jorden Sandy Reason for consultation: Left arm numbness Has provider been notified: No DS: Diagnosis Discharge Diagnosis (1) Migraine equivalent syndrome: Status: Acute DS: Summary Hospital Course Hospital Course: History of presenting illness: Date of Service: 09/12/23 Attending physician on admission: Ricardo Lozoya Chief Complaint: Left arm numbness Inessa Maldonado is a very pleasant 43 years old woman with no significant past medical history presents to the emergency department complaining of left arm numbness that started 30-45 minutes before arriving to the emergency department. She did not report any numbness or weakness to her face or left leg. She did not report any headache, acute visual disturbances, nausea, vomiting, dizziness, palpitations, chest pain or shortness on breath. She did not report any acute gastrointestinal genitourinary symptoms. She denied tobacco smoking, alcohol abuse or illicit drug use. She has no history of diabetes mellitus, hy pertension, hyperlipidemia, heart disease or strokes. She also denied any history of stroke or blood dyscrasias in her family. Patient stated that she recently started to eat a healthy diet and exercise. In the ED, she was found to have an initial blood pressure 174/101. Last BP is 147/82. Blood workup including CBC, CMP and troponin are unremarkable except for slight elevation of transaminases and total CK. Head CT scan showed no acute intracranial abnormalities. ECG showed normal sinus rhythm and incomplete right bundle branch block. ED tx: Aspirin 162 mg p.o. Hospital course: Left upper extremity numbness: 43-year-old female patient with no significant past medical history presented with left upper extremity numbness and tingling, patient recently starting exercising using elliptical machine, also lost greater than 10 lb in last 4 weeks, workup in the emergency room showed a normal CT head, patient noted to have mildly elevated CPK and LFTs, and MRI brain was unremarkable patient evaluated by Neurology they felt left upper extremity numbness is related to migraine syndrome since patient is hemodynamically stable she is being discharged home with recommendation to drink plenty of fluids, avoid alcohol and have outpatient follow-up with primary care physician for repeat labs. Patient with no significant risk factors for stroke with a hemoglobin A1c 5.3, average blood sugar 105, borderline high blood pressure, LDL 56. Time Attestation Discharge Coordination Time (in mins): 36 Quality: Safe Use of Opioids Does Pt have an Active Cancer Diagnosis on the Problem List?: No Quality: Stroke Does the patient have a stroke diagnosis?: No Physical Exam Vital Signs: Vital Signs: Last Vital Signs Temp 97.7 F 09/12/23 11:25 Pulse 56 09/12/23 11:25 Resp 18 09/12/23 11:25 BP 146/70 H 09/12/23 11:25 Pulse Ox 97 09/12/23 11:25 O2 Del Method Room Air 09/12/23 11:25 BMI result Body Mass Index 35.0 Const: Other: General in no acute distress. Neck no JVD. CVS regular rate rhythm, Respiratory lungs clear to auscultation, no respiratory distress, no wheeze, no rhonchi. Gastrointestinal abdomen soft, nontender, bowel sounds audible Extremities no edema. Neuro non focal, speech clear, face symmetrical, no pronator drift, normal [id number] testing. Skin no rash Appropriate affect DS: Data Data Completed and Pending Labs on day of discharge: Laboratory Results - last 24 hr 09/12/23 09/12/23 09/12/23 01:10 04:25 04:26 WBC 7.8 7.8 RBC 4.28 3.96 L Hgb 13.3 12.6 Hct 38.0 35.6 L MCV 88.8 89.9 MCH 31.1 31.8 MCHC 35.0 35.4 H RDW 12.6 12.4 Plt Count 365 313 MPV 9.9 10.1 Immature Gran % (Auto) 0.4 0.5 H Neut % (Auto) 49.1 59.9 Lymph % (Auto) 35.7 27.2 Wilson % (Auto) 10.1 9.0 Eos % (Auto) 4.1 H 2.8 Baso % (Auto) 0.6 0.6 Lymph # (Auto) 2.8 2.1 Wilson # (Auto) 0.8 0.7 Eos # (Auto) 0.3 0.2 Baso # (Auto) 0.1 0.1 Abs Immat Gran (auto) 0.03 0.04 H Absolute Neuts (auto) 3.8 4.6 Absolute Nucleated RBC 0.000 0.000 Nucleated RBC % (auto) 0.0 0.0 PT 11.6 INR 1.0 APTT 30.3 Sodium 140 141 Potassium 3.8 4.7 D Chloride 109 H 111 H Carbon Dioxide 21 L 23 Anion Gap 14 12 BUN 13 11 Creatinine 0.91 0.91 Estim Creat Clear Calc 100.3 102.9 Estimated GFR > 60 > 60 Random Glucose 102 103 Estimat Average Glucose 105 Hemoglobin A1c % 5.3 Calcium 9.5 9.3 Magnesium 2.3 Total Bilirubin 0.5 0.4 Direct Bilirubin 0.2 AST 35 H 33 H ALT 63 H 60 H Alkaline Phosphatase 42 38 L Total Creatine Kinase 265 H 221 H Troponin I High Sens 4.6 4.0 Total Protein 7.0 6.7 Albumin 4.5 4.2 TSH 0.64 Urine Color Urine Appearance Urine pH Ur Specific [place] Urine Protein Urine Glucose (UA) Urine Ketones Urine Blood Urine Nitrite Ur Leukocyte Esterase 09/12/23 09/12/23 07:51 Unknown WBC RBC Hgb Hct MCV MCH MCHC RDW Plt Count MPV Immature Gran % (Auto) Neut % (Auto) Lymph % (Auto) Wilson % (Auto) Eos % (Auto) Baso % (Auto) Lymph # (Auto) Wilson # (Auto) Eos # (Auto) Baso # (Auto) Abs Immat Gran (auto) Absolute Neuts (auto) Absolute Nucleated RBC Nucleated RBC % (auto) PT INR APTT Sodium Potassium Chloride Carbon Dioxide Anion Gap BUN Creatinine Estim Creat Clear Calc Estimated GFR Random Glucose Estimat Average Glucose Hemoglobin A1c % Calcium Magnesium Total Bilirubin Direct Bilirubin AST ALT Alkaline Phosphatase Total Creatine Kinase Troponin I High Sens Total Protein Albumin TSH Urine Color Yellow Yellow Urine Appearance Clear Clear Urine pH 6.5 6.5 Ur Specific [place] 1.010 1.010 Urine Protein Negative Negative Urine Glucose (UA) Negative Negative Urine Ketones Negative Negative Urine Blood Negative Negative Urine Nitrite Negative Negative Ur Leukocyte Esterase Negative Negative Discharge Plan Discharge Patient Disposition: Home, Self-Care Discharge Diagnosis: Left arm numbness Elevated CPK Referrals: Martha Odom MD [Primary Care Provider] - 1 Week Discharge Medications: No Action No Known Home Meds Discharge Orders: Discharge Order (Routine); Ordered 09/12/23 Ordered By: Christina Trivedi Diet: Advance to usual diet Activity on Discharge: As tolerated Stand Alone Forms: Patient Portal Discharge page Print Language: Azerbaijani Care Plan Goals: Left arm numbness likely due to vigorous arm movement/migraine syndrome No acute CVA Mild elevated CPK likely due to exercise, drink fluids Mild elevated LFTs avoid alcohol likely due to elevated CPK, drink fluids Health Concerns: none Plan of Treatment: Outpatient follow-up with primary care physician call for appointment Assessment: As above
--- NOTE | 2023-09-12 12:40 | MHC.CM.PN ---
Patient has been medically cleared for dc to home today, self care.
== END 2023-09-12 14:30 | disposition home or self-care (01) ==
LOC: HO.ED 02:36 → HO.EDOVER 03:41 → HO.IMC 09:49
PROVIDERS: Admitting Provider Internal Medicine; Emergency Provider Emergency Medicine Emergency Medical Services; PCP Internal Medicine; Visit Provider Hospitalist
DX: G43.109 Migraine with aura, not intractable, without status migrainosus (principal); R29.810 Facial weakness; R20.0 Anesthesia of skin; R74.01 Elevation of levels of liver transaminase levels; R74.8 Abnormal levels of other serum enzymes
CPT/HCPCS: 36415; 70450; 70551; 80048; 80053; 80076; 81003; 82550; 83036; 83735; 84443; 84484; 85025; 85610; 85730; 93005; 93306; 93880; 99222; 99285; Q9957

== ENCOUNTER 2023-09-12 03:36 | Outpatient (BNV) | payer BC, SELFPAY | END 2023-09-12 07:00 | PROVIDERS: Admitting Provider Internal Medicine; Emergency Provider Emergency Medicine Emergency Medical Services; PCP Internal Medicine; Visit Provider Internal Medicine Cardiovascular Disease | DX: R94.31 Abnormal electrocardiogram [ECG] [EKG] (principal) | CPT/HCPCS: 93010; 93306 ==

== ENCOUNTER → 2023-09-12 03:36 | Outpatient (BNV) | payer BC, SELFPAY | PROVIDERS: Admitting Provider Internal Medicine; Emergency Provider Emergency Medicine Emergency Medical Services; PCP Internal Medicine; Visit Provider Psychiatry & Neurology Neurology | DX: G43.109 Migraine with aura, not intractable, without status migrainosus (principal) | CPT/HCPCS: 99222 ==

== ENCOUNTER → 2023-09-12 03:36 | Outpatient (BNV) | payer BC, SELFPAY | PROVIDERS: Admitting Provider Internal Medicine; Emergency Provider Emergency Medicine Emergency Medical Services; PCP Internal Medicine; Visit Provider Hospitalist | DX: R20.0 Anesthesia of skin (principal); R74.01 Elevation of levels of liver transaminase levels; R74.8 Abnormal levels of other serum enzymes; G43.109 Migraine with aura, not intractable, without status migrainosus | CPT/HCPCS: 99235; 99499 ==

== ENCOUNTER 2023-11-06 08:39 | Outpatient (AMB) | payer BC, SELFPAY ==
[2023-11-06 08:40] VITALS: BP 116/76; PULSE 54; O2SAT 98; BMI 32.9
--- NOTE | 2023-11-06 08:40 | A.OFFPC_ITS ---
Vital Signs 11/06/23 08:40 Height 5 ft 9 in Weight 223 lb BMI 32.9 BP 116/76 Blood Pressure Location Rt brachial Position Sitting Pulse 54 Pulse Source Pulse Oximeter Pulse Oximetry (%) 98 Oxygen Delivery Method Room Air Intake Visit Reasons: Annual PE Intake Note: Pt is here today for PE. Allergies nickel Allergy (Mild, Uncoded 11/06/23 08:42) skin irritation Medication List - Last Reconciled 11/06/23 by Martha Odom MD No Known Home Meds Tobacco use date assessed: 11/06/23 Dental Screening Dental Screen Date: 11/06/23 Did you have a dental visit in the last 12 months?: Yes Did you have a dental problem in the last 6 months where you did not have access to dental care?: No Was dental information given to patient?: Patient has dentist HPI Annual PE HPI Details Patient presents for PE. 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 1. Little interest or pleasure in doing things: not at all 2. Feeling down, depressed, or hopeless: not at all 3. Trouble falling or staying asleep, or sleeping too much: not at all 4. Feeling tired or having little energy: several days 5. Poor appetite or overeating: not at all 6. Feeling bad about yourself - or that you are a failure or have let yourself or your family down: not at all 7. Trouble concentrating on things, such as reading the newspaper or watching television: several days 8. Moving or speaking so slowly that other people could have noticed. Or the opposite - being so fidgety or restless that you have been moving around a lot more than usual: not at all 9. Thoughts that you would be better off or of hurting yourself in some way: not at all Total score: 2 Depression Screening Interpretation: Negative Depression Screening Done: Yes 76563 - PHQ-9 Billing: Yes Source: Developed by Drs. Edmundo Alvarenga, Jelena Albrecht, Juan Leon and colleagues, with an educational zeb from [employer]. Thrive Questionnaire Date Thrive assessed: 11/06/23 I am a: Patient What is your living situation today?: I have a steady place to live Within the past 12 months, did the food you bought not last and you didn't have the money to get more?: Never true Within the past 12 months, did you worry whether your food would run out before you got money to buy more?: Never true Do you have trouble paying for medicines?: No Do you have trouble getting transportation to medical appointments?: No Do you have trouble paying your heating and electricity bill?: No Do you have trouble taking care of your child, family member or friend?: No Do you have trouble with day-to-day activities such as bathing, preparing meals, shopping, managing finances, etc.?: No Are you currently unemployed and looking for a job?: No Are you interested in more education?: No Please select the resources that you would like help with: None Currently or been in a relationship where the following occur: No concerns rep orted THRIVE Score: 0 AUDIT C Alcohol Use Questionnaire (AUDIT-C) 1. How often do you have a drink containing alcohol?: Monthly or less 2. How many drinks containing alcohol do you have on a typical day when you are drinking?: 1 or 2 3. How often do you have six or more drinks on one occasion?: Never Total Score: 1 KG-7 AMB Questionnaire KG-7 Date KG - 7 assessed: 09/03/24 Feeling nervous, anxious, or on edge: 0 = Not at all Not being able to stop or control worryin = Not at all Worrying too much about different things: 0 = Not at all Trouble relaxin = Not at all Being so restless that it is hard to sit still: 0 = Not at all Becoming easily annoyed or irritable: 0 = Not at all Feeling afraid as if something awful might happen: 0 = Not at all Total KG-7 score (0-4 normal; 5-9 mild; 10-14 moderate; 15-21 severe): 0 Source: Developed by Drs. Edmundo Alvarenga, Jelena Albrecht, Juan Leon and colleagues, with an educational zeb from [employer]. KG-7 Assessment Billing KG-7 Assessment Tool: KG-7 Assessment 29636 Review of Systems Const All systems reviewed & are unremarkable except as noted in HPI and below Eyes Reports no additional complaints ENT Reports no additional complaints Card Reports no additional complaints Resp Reports no additional complaints GI Reports no additional complaints Reports no additional complaints Physical exam (Primary Care) Vital Signs: Last Vital Signs Pulse 54 11/06/23 08:40 BP 116/76 11/06/23 08:40 Pulse Ox 98 11/06/23 08:40 Oxygen Delivery Method Room Air 11/06/23 08:40 BMI result Body Mass Index 32.9 Tobacco/Smoking Status: Tobacco use Status Tobacco use date assessed 11/06/23 11/06/23 08:42 Patient Tobacco Use Status Never used Tobacco 11/06/23 08:42 Tobacco use type 10/25/22 11:59 e-Cigarette/Vaping Use Never Used 11/06/23 08:42 PHQ-9: PHQ-9 Score PHQ-9: Total score 2 11/06/23 09:25 Depression Screening Interpretation: Negative Thrive Assessment: Date of Thrive Assessment Date Thrive assessed 11/06/23 11/06/23 08:44 Currently or been in a relationship where the following occur: No concerns reported Const General: no acute distress HENMT Head: Yes normal to inspection Ears: hearing grossly normal bilaterally Face and sinus: Yes normal facial exam Throat: Yes posterior oropharynx normal Eyes General: appearance normal, both eyes and all related structures Neck Neck: Yes supple Resp Effort & Inspection: normal respiratory effort Auscultation: clear to auscultation bilaterally Cardio Rhythm: regular rhythm Heart sounds: S1 normal heart sound present and S2 normal heart sound present GI Inspection: Yes normal to inspection Palpation (GI): Soft to palpation Percussion: Yes normal to percussion Auscultation: normal bowel sounds Assessment and Plan Assessment & Plan (1) FHx: colonic polyps: Comment: father and sister Code(s): Z83.719 - Family history of colon polyps, unspecified Plan: Referred to GI for colonoscopy (2) Annual physical exam: Code(s): Z00.00 - Encounter for general adult medical examination without abnormal findings Plan: Well-balanced diet regular physical activity weight loss discussed with the patient. (3) Dysplastic nevi: Comment: On upper chest and right forearm, refer to Dermatology Code(s): D23.9 - Other benign neoplasm of skin, unspecified (4) Elevated LFTs: Code(s): R79.89 - Other specified abnormal findings of blood chemistry Plan: Monitor liver function avoid NSAIDs and alcohol Orders: Orders Lipid Panel Today D64.9 - Anemia, unspecified, R74.01 - Elevation of levels of liver transaminase levels, R79.89 - Other specified abnormal findings of blood chemistry, Z00.00 - Encounter for general adult medical examination without abnormal findings Complete Blood Count Auto Diff Today D64.9 - Anemia, unspecified, R74.01 - Elevation of levels of liver transaminase levels, R79.89 - Other specified abnormal findings of blood chemistry, Z00.00 - Encounter for general adult medical examination without abnormal findings IRON PROFILE Today D64.9 - Anemia, unspecified, R74.01 - Elevation of levels of liver transaminase levels, R79.89 - Other specified abnormal findings of blood chemistry, Z00.00 - Encounter for general adult medical examination without abnormal findings Comprehensive [place]. Panel Fast Today R79.89 - Other specified abnormal findings of blood chemistry Referrals Gastroenterology Referral D64.9 - Anemia, unspecified, R74.01 - Elevation of levels of liver transaminase levels, R79.89 - Other specified abnormal findings of blood chemistry, Z00.00 - Encounter for general adult medical examination without abnormal findings, Z83.719 - Family history of colon polyps, unspecified Dermatology Referral D23.9 - Other benign neoplasm of skin, unspecified Coding Level of Care Code Est Pt Prev Care 40-64y(33309) Diagnoses FHx: colonic polyps Z83.719 Annual physical exam Z00.00 Dysplastic nevi D23.9 Elevated LFTs R79.89 Additional Codes GK-7 Assessment Billing - KG-7 Assessment Tool: KG-7 Assessment [id number] ([id number])
== END 2023-11-06 14:58 | disposition home or self-care (01) ==
PROVIDERS: PCP Internal Medicine; Visit Provider Internal Medicine
DX: Z00.00 Encounter for general adult medical examination without abnormal findings (principal); Z83.719 Family history of colon polyps, unspecified; D23.9 Other benign neoplasm of skin, unspecified; R79.89 Other specified abnormal findings of blood chemistry
CPT/HCPCS: 99396

== ENCOUNTER → 2024-04-09 12:18 | Outpatient (BNVA) | payer BC, SELFPAY | PROVIDERS: PCP Internal Medicine; Visit Provider Internal Medicine | DX: D17.1 Benign lipomatous neoplasm of skin and subcutaneous tissue of trunk (principal) | CPT/HCPCS: 96127 ==

== ENCOUNTER 2024-12-11 08:29 | Outpatient (REF) | payer BC, SELFPAY ==
[2024-12-11 13:34] LABS: MANUAL DIFF FLAG NO
[2024-12-11 14:08] LABS: Hematocrit 40.3 % (37.0-47.0); Hemoglobin 13.3 g/dl (12.0-16.0); Imm Gran Abs Auto 0.09 X10*3/uL (0.00-0.03); Imm Gran Pct Auto 1.2 % (0.0-0.4); Lymphocytes Absolute Auto 1.4 X10*3/uL (1.2-4.9); Mean Corpuscular HGB Conc 33.0 g/dl (31.0-35.0); Mean Corpuscular Hemoglobin 30.2 pg (27.0-33.0); Mean Corpuscular Volume 91.4 fL (80.0-98.0); NRBC Abs Auto 0.000 X10*3/uL (0.0-0.012); NRBC Pct Auto 0.0 /100WBC (0.0-0.2); Platelet Count 370 X10*3/uL (160-400); Red Blood Count 4.41 X10*6/uL (4.20-5.50); White Blood Count 7.6 X10*3/uL (4.8-10.8)
[2024-12-11 14:33] LABS: Alanine Aminotransferase 17 U/L (0-31); Albumin Level 4.5 g/dL (3.5-5.0); Alkaline Phosphatase 41 U/L (39-117); Anion Gap 9 (12-20); Aspartate Amino Transferase 20 U/L (5-31); Blood Urea Nitrogen 10 mg/dL (9-16); Calcium 9.1 mg/dL (8.4-10.2); Carbon Dioxide 27 mmol/L (22-29); Chloride 110 mmol/L (96-108); Cholesterol 134 mg/dL (<200); Estimated Glomerular Filt Rate > 60; HDL Cholesterol 27 mg/dL (>40); Potassium 4.9 mmol/L (3.3-5.1); Sodium 141 mmol/L (135-145); Total Protein 6.8 g/dL (6.5-8.0); Triglycerides 131 mg/dL (<150)
[2024-12-11 15:22] LABS: Free T4 (Free Thyroxine) 1.12 ng/dL (0.71-1.85)
[2024-12-11 16:37] LABS: Appearance Urine Clear; Glucose Urine UA Negative (Negative); PH >= 9.0 (5.0-9.0); Specific Gravity - Urine 1.020 (1.005-1.025); UMIC TRIGGER UA YES
== END 2024-12-11 08:30 | disposition home or self-care (01) ==
LOC: HO.HMGCLDS 08:29
PROVIDERS: PCP Internal Medicine; Visit Provider Internal Medicine
DX: Z00.00 Encounter for general adult medical examination without abnormal findings (principal); D64.9 Anemia, unspecified
CPT/HCPCS: 36415; 80053; 80061; 81001; 82306; 84439; 84443; 85025; 96127

== ENCOUNTER 2024-12-11 08:29 | Outpatient (AMB) | payer BC, SELFPAY ==
[2024-12-11 08:31] VITALS: BP 118/80; PULSE 67; RESP 18; TEMP 36.7; O2SAT 98; BMI 28.4
--- NOTE | 2024-12-11 08:31 | MHC.PC.OV ---
Vital Signs 12/11/24 08:31 Height 5 ft 9 in Weight 192 lb BMI 28.4 BP 118/80 Blood Pressure Location Lt brachial Position Sitting Respiration 18 Pulse 67 Pulse Source Pulse Oximeter Temp 98.1 F Temp Source Oral Pulse Oximetry (%) 98 Oxygen Delivery Method Room Air Intake Visit Reasons: Annual PE Intake Note: Pt is here today for PE. Allergies nickel Allergy (Mild, Uncoded 12/11/24 08:38) skin irritation Medication List - Last Reconciled 12/11/24 by Martha Odom MD tirzepatide (weight loss) (Zepbound) 12.5 mg subcut QWEEK Tobacco use date assessed: 12/11/24 Dental Screening Dental Screen Date: 04/09/24 [facility] Medical History (Updated 12/11/24 @ 08:58 by Martha Odom MD) Elevated LFTs Normal pelvic exam Obesity Annual physical exam Surgical History Status post laparoscopic cholecystectomy Family History Father Diabetes type 2, controlled Cancer Mother Substance use disorder Brother Substance use disorder Social History Household Members: Family Household Members Other:: , 2 children, 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 1. Little interest or pleasure in doing things: several days 2. Feeling down, depressed, or hopeless: not at all 3. Trouble falling or staying asleep, or sleeping too much: several days 4. Feeling tired or having little energy: several days 5. Poor appetite or overeating: not at all 6. Feeling bad about yourself - or that you are a failure or have let yourself or your family down: not at all 7. Trouble concentrating on things, such as reading the newspaper or watching television: several days 8. Moving or speaking so slowly that other people could have noticed. Or the opposite - being so fidgety or restless that you have been moving around a lot more than usual: not at all 9. Thoughts that you would be better off or of hurting yourself in some way: not at all Total score: 4 Depression Screening Interpretation: Negative Depression Screening Done: Yes Source: Developed by Drs. Edmundo Alvarenga, Jelena Albrecht, Juan Leon and colleagues, with an educational zeb from [employer]. Thrive Questionnaire Date Thrive assessed: 04/03/24 I am a: Patient What is your living situation today?: I have a steady place to live Within the past 12 months, did the food you bought not last and you didn't have the money to get more?: Never true Within the past 12 months, did you worry whether your food would run out before you got money to buy more?: Never true Do you have trouble paying for medicines?: No Do you have trouble getting transportation to medical appointments?: No Do you have trouble paying your heating and electricity bill?: No Do you have trouble taking care of your child, family member or friend?: No Do you have trouble with day-to-day activities such as bathing, preparing meals, shopping, managing finances, etc.?: No Are you currently unemployed and looking for a job?: No Are you interested in more education?: No Please select the resources that you would like help with: None Currently or been in a relationship where the following occur: No concerns reported THRIVE Score: 0 KG-7 AMB Questionnaire KG-7 Date KG - 7 assessed: 04/09/24 Feeling nervous, anxious, or on edge: 0 = Not at all Not being able to stop or control worryin = Not at all Worrying too much about different things: 1 = Several days Trouble relaxin = Not at all Being so restless that it is hard to sit still: 0 = Not at all Becoming easily annoyed or irritable: 0 = Not at all Feeling afraid as if something awful might happen: 1 = Several days Total KG-7 score (0-4 normal; 5-9 mild; 10-14 moderate; 15-21 severe): 2 Source: Developed by Drs. Edmundo Alvarenga, Jelena Albrecht, Juan Leon and colleagues, with an educational zeb from [employer]. Review of Systems Const All systems reviewed & are unremarkable except as noted in HPI and below Eyes Reports no additional complaints ENT Reports no additional complaints Card Reports no additional complaints Resp Reports no additional complaints GI Reports no additional complaints Reports no additional complaints Physical exam (Primary Care) Vital Signs: Last Vital Signs Temp 98.1 F 12/11/24 08:31 Pulse 67 12/11/24 08:31 Resp 18 12/11/24 08:31 BP 118/80 12/11/24 08:31 Pulse Ox 98 12/11/24 08:31 Oxygen Delivery Method Room Air 12/11/24 08:31 BMI result Body Mass Index 28.4 Tobacco/Smoking Status: Tobacco use Status Tobacco use date assessed 12/11/24 12/11/24 08:42 Patient Tobacco Use Status Never used Tobacco 12/11/24 08:32 Tobacco use type 10/25/22 11:59 e-Cigarette/Vaping Use Never Used 12/11/24 08:32 PHQ-9: PHQ-9 Score PHQ-9: Total score 4 12/11/24 08:42 Depression Screening Interpretation: Negative Thrive Assessment: Date of Thrive Assessment Date Thrive assessed 04/03/24 12/11/24 08:32 Currently or been in a relationship where the following occur: No concerns reported Const General: no acute distress HENMT Head: Yes normal to inspection Ears: TM's normal bilaterally Throat: Yes posterior oropharynx normal Eyes General: appearance normal, both eyes and all related structures Neck Neck: Yes no lymphadenopathy and Yes supple Resp Effort & Inspection: normal respiratory effort Auscultation: clear to auscultation bilaterally Cardio Rhythm: regular rhythm Heart sounds: S1 normal heart sound present and S2 normal heart sound present GI Inspection: Yes normal to inspection Palpation (GI): Soft to palpation Percussion: Yes normal to percussion Auscultation: normal bowel sounds Coding Level of Care Code Est Pt Prev Care 40-64y(72573) Diagnoses Annual physical exam Z00.00 Assessment & Plan Assessment & Plan (1) Annual physical exam: Code(s): Z00.00 - Encounter for general adult medical examination without abnormal findings Category: Medical Plan: Well-balanced diet regular physical activity discussed with the patient she is 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 Patient had a mammogram at [facility] she will check Cologuard for colon cancer screening. Patient will continue with the weight management program and take Zepbound Orders: Orders Complete Blood Count Auto Diff Today D64.9 - Anemia, unspecified, Z00.00 - Encounter for general adult medical examination without abnormal findings UA w Microscopic Today D64.9 - Anemia, unspecified, Z00.00 - Encounter for general adult medical examination without abnormal findings Comprehensive [place]. Panel Fast Today D64.9 - Anemia, unspecified, Z00.00 - Encounter for general adult medical examination without abnormal findings Lipid Panel Today D64.9 - Anemia, unspecified, Z00.00 - Encounter for general adult medical examination without abnormal findings TSH reflex Free T4 Today D64.9 - Anemia, unspecified, Z00.00 - Encounter for general adult medical examination without abnormal findings Vitamin D 25-OH Total Today D64.9 - Anemia, unspecified, Z00.00 - Encounter for general adult medical examination without abnormal findings Referrals Cologuard Test Z12.11 - Encounter for screening for malignant neoplasm of colon, Z12.12 - Encounter for screening for malignant neoplasm of rectum
== END 2024-12-11 09:03 | disposition home or self-care (01) ==
LOC: HO.HMCC 08:30
PROVIDERS: PCP Internal Medicine; Visit Provider Internal Medicine
DX: Z00.00 Encounter for general adult medical examination without abnormal findings (principal)